=== PATIENT | male | born 1985 | race Caucasian/White ===

== ENCOUNTER 2019-04-05 10:15 | Emergency (ER) | payer OTHER ==
[2019-04-05] MEDS ORDERED: Clindamycin 600 MG/D5W BAG(*) 600 MG/50 ML BAG IV ONE (13:02)
--- NOTE | 2019-04-05 13:08 | ED ---
Throat Pain/Nasal Congestion - HPI Summary HPI Summary: 33-year-old male diagnosed significant past medical history presents to emergency department today complaining of a dental abscess. The patient states this began one week ago and has continued to develop since then. He currently endorses 8 out of 10 pain in his right lower jaw and has taken ibuprofen and Tylenol prior to arrival for alleviation of his symptoms. Patient states he's never seen a dentist. He denies fever, chest pain, abdominal pain, shortness of breath, difficulty swallowing but does endorse difficulty with chewing due to pain. - History of Current Complaint Chief Complaint: EDDentalPain Time Seen by Provider: 04/05/19 12:47 Hx Obtained From: Patient Onset/Duration: Gradual Onset Severity: Moderate - Allergies/Home Medications Allergies/Adverse Reactions: Allergies Allergy/AdvReac Type Severity Reaction Status Date / Time No Known Allergies Allergy Verified 04/05/19 10:27 Home Medications: Home Medications Albuterol HFA INHALER* [Ventolin HFA Inhaler*] 1 puff INH Q4H PRN 04/05/19 [ History Confirmed 04/05/19] Ibuprofen TAB* [Advil TAB*] 600 mg PO Q6H PRN 04/05/19 [History Confirmed ] PMH/Surg Hx/FS Hx/Imm Hx Respiratory History: Reports: Hx Asthma Infectious Disease History: No Infectious Disease History: Denies: Hx Clostridium Difficile, Hx Hepatitis, Hx Human Immunodeficiency Virus (HIV), Hx of Known/Suspected MRSA, Hx Shingles, Hx Tuberculosis, Hx Known/ Suspected VRE, Hx Known/Suspected VRSA, History Other Infectious Disease, Traveled Outside the [place] in Last 30 Days - Family History Family History: NON CONTRIBUTORY - Social History Alcohol Use: None Substance Use Type: Reports: None Smoking Status (MU): Light Every Day Tobacco Smoker Amount Used/How Often: 1 cig daily Review of Systems Constitutional: Negative Eyes: Negative Positive: Dental Pain, Ear Ache Cardiovascular: Negative Respiratory: Negative Gastrointestinal: Negative Genitourinary: Negative Musculoskeletal: Negative Skin: Negative Neurological: Negative Psychological: Normal All Other Systems Reviewed And Are Negative: Yes Physical Exam Triage Information Reviewed: Yes Vital Signs On Initial Exam: Initial Vitals Temp Pulse Resp BP Pulse Ox 98.8 F 64 16 145/87 97 04/05/19 10:24 04/05/19 10:24 04/05/19 10:24 04/05/19 10:24 04/05/19 10:24 Vital Signs Reviewed: Yes Appearance: Positive: Well-Appearing, No Pain Distress, Well-Nourished Skin: Positive: Warm, Skin Color Reflects Adequate Perfusion Eyes: Positive: EOMI, RACQUEL ENT: Positive: Hearing grossly normal, Pharynx normal, Dental tenderness Dental: Positive: Percussion Tenderness @ - Left lower gumline near tooth 21/20 , Abscess @ - Significant erythema noted around tooth 21/20 however no significant abscess can be visualized from the inside of the mouth. Negative: Cellulitis @, Bleeding Respiratory/Lung Sounds: Positive: Clear to Auscultation, Breath Sounds Present Cardiovascular: Positive: RRR, S1, S2 Abdomen Description: Positive: Nontender, Soft Bowel Sounds: Positive: Present Musculoskeletal: Positive: Strength/ROM Intact Neurological: Positive: Sensory/Motor Intact, Alert, Oriented to Person Place, Time, Normal Gait, Facial Symmetry, Speech Normal Psychiatric: Positive: Normal AVPU Assessment: Alert Procedures - Sedation Patient Received Moderate/Deep Sedation with Procedure: No Diagnostics - Vital Signs Vital Signs Temp Pulse Resp BP Pulse Ox 04/05/19 11:53 99.5 F 56 16 129/77 99 04/05/19 10:24 98.8 F 64 16 145/87 97 - Laboratory Result Diagrams: 04/05/19 13:09 04/05/19 13:09 Lab Statement: Any lab studies that have been ordered have been reviewed, and results considered in the medical decision making process. EENT Course/Dx - Course Course Of Treatment: Patient was evaluated in the emergency department for dental abscess. Patient was seen and examined his vitals were stable and he is afebrile. A CT of the maxillofacial region with contrast was ordered which showed no evidence of abscess but was suggestive of cellulitis. laboratory studies showed no leukocytosis or electrolyte abnormalitis and a mild elevation in CRP 10.76. patient was given 600 mg IV clindamycin for treatment of dental abscess and 5 of oxycodone for pain relief. Pt was given a prescription for bactrim BID x 7 days. He is to follow up with his PCP/ dentist for further evaluation. Pt agrees with this plan. - Differential Diagnoses Differential Diagnoses: Dental Abscess, Dental Caries, Fractured Tooth, Gingivitis - Diagnoses Provider Diagnoses: Cellulitis, face Discharge ED - Sign-Out/Discharge Documenting (check all that apply): Patient Departure - Discharge Plan Condition: Stable Disposition: HOME Prescriptions: Sulfamethox/Trimethoprim DS* [Bactrim DS 800/160 TAB*] 1 tab PO BID #14 tab Patient Education Materials: Cellulitis (ED) Referrals: [facility] [Outside] No Primary Care Phys,NOPCP [Primary Care Provider] - Additional Instructions: You were seen in the emergency department today for possible dental abscess. A CT scan was done and revealed no evidence of abscess however you do have facial cellulitis. This is a skin infection which can be treated with antibiotics. I have sent a prescription for Bactrim to your pharmacy which is to be taken one pill every 12 hours for 7 days. Please follow-up with your primary care provider or [facility] provider for further evaluation and management in 4 days to check for antibiotic efficacy. Please return to the emergency department immediately if you develop any new or worsening symptoms. Please see a dentist as this infection may have stemmed from a dental infection. Take 600mg ibuprofen ever 6 hours as needed for pain - Billing Disposition and Condition Condition: STABLE Disposition: Home - Attestation Statements Provider Attestation: I have seen the patient with the MICHAEL and agree with the plan and documentation below except as noted: efer this is a 33-year-old male with left facial swelling found to have cellulitis. No abscesses requiring drainage. Given clindamycin dental follow-up. Arslan Hogan MD
[2019-04-05] MEDS ORDERED: oxyCODONE TAB* 5 MG TAB PO ONE (13:24)
[2019-04-05 13:27] LABS: ABS Eosinophils 0.1 10^3/ul (0-0.6); ABS Monocytes 0.7 10^3/ul (0-0.8); ABS Neutrophils 4.9 10^3/ul (1.5-7.7); Eosinophil % 1.7 %; Hematocrit 44 % (42-52); Hemoglobin 15.6 g/dL (14.0-18.0); Lymphocyte % 25.1 %; Mean Corpuscular HGB Conc 35 g/dL (31-36); Mean Corpuscular Hemoglobin 33 pg (27-31); Mean Corpuscular Volume 93 fL (80-94); Nucleated Red Blood Cells % 0.1; Platelet Count 214 10^3/uL (150-450); Red Blood Count 4.74 10^6 /uL (4.18-5.48); Red Cell Distribution Width 13 % (10-15); White Blood Count 7.8 10^3/uL (3.5-10.8)
[2019-04-05 14:05] LABS: Albumin 4.8 g/dL (3.2-5.2); C Reactive Protein 10.76 mg/L (<8.01); Calcium 9.8 mg/dL (8.6-10.3); Globulin 2.4 g/dL (2-4); Potassium 4.3 mmol/L (3.5-5.0); Total Bilirubin 0.7 mg/dL (0.2-1.0); Total Protein 7.2 g/dL (6.4-8.9)
[2019-04-05] MEDS ORDERED: Iodixanol* (CONTRAST) 320 MG/ML 100 ML SDV IV ONE (15:32)
[2019-04-05 16:14] LABS: BUN/Creatinine Ratio 15.1 (8-20); EGFR African American 113.9 (>60); EGFR Non-African American 94.2 (>60)
[2019-04-05 17:13] VITALS: BP 139/72
== END 2019-04-05 17:11 | disposition home or self-care (01) ==
LOC: ED 10:15
DX: L03.211 Cellulitis of face (principal); F17.210 Nicotine dependence, cigarettes, uncomplicated; K08.89 Other specified disorders of teeth and supporting structures; H92.09 Otalgia, unspecified ear; J45.909 Unspecified asthma, uncomplicated
CPT/HCPCS: 36415; 70487; 80053; 85025; 86140; 96365; 99282; A9270-GY; Q9967